=== PATIENT | male | born 2000 | race Hispanic/Latino ===

== ENCOUNTER 2018-04-28 20:36 | Emergency (ER) | payer MEDICAID, OTHER ==
[2018-04-28 20:53] VITALS: BP 141/78
--- NOTE | 2018-04-28 22:04 | Emergency Department Report ---
ED Fall HPI - General Chief Complaint: Fall Stated Complaint: HEAD PAIN Time Seen by Provider: 04/28/18 21:00 Source: patient, EMS Mode of arrival: Stretcher - History of Present Illness Initial Comments: Mr. Chairez is a very pleasant 17-year-old male with history of major depressive disorder, PTSD, ADHD and seizure who presents after a fall in his apartment. He stumbles and fell. He struck his head on the kitchen counter. He suspects loss of consciousness. He is able to get up on his own. He then ambulated to the staff office. He was transported by EMS. He has mild headache. Mild neck pain. Otherwise has been in good health. He arrived to our ED with cervical collar and immobilization on spinal board. Mr. Chairez grew up in [place]. [place] Denies tobacco abuse or alcohol use. Does smoke marijuana occasionally. MD Complaint: fall -: Sudden Fall From: standing When Fall Occurred: 1 hour [employer] Fall Witnessed: no Place Fall Occurred: home Loss of Consciousness: yes Prolonged Down Time?: no Symptoms Prior to Fall: none Location: head Severity: mild Associated Symptoms: headache, neck pain - Related Data Allergies Allergy/AdvReac Type Severity Reaction Status Date / Time tramadol Allergy Unknown Verified 04/28/18 20:41 ED Review of Systems ROS: Stated complaint: HEAD PAIN Other details as noted in HPI Comment: All other systems reviewed and negative Constitutional: denies: fever, malaise Respiratory: denies: cough ED Past Medical Hx - Past Medical History Previous Medical History?: Yes Additional medical history: ADHD - Surgical History Past Surgical History?: No - Social History Smoking Status: Never Smoker Substance Use Type: None ED Physical Exam - General Limitations: No Limitations General appearance: alert, in no apparent distress - Head Head exam: Present: normocephalic, other (superficial abrasion right forehead no hematoma) - Eye Eye exam: Present: normal appearance, PERRL. Absent: scleral icterus - ENT ENT exam: Present: mucous membranes moist - Neck Neck exam: Present: normal inspection, other (cervical collar in place). Absent: tenderness, meningismus - Respiratory Respiratory exam: Present: normal lung sounds bilaterally. Absent: respiratory distress, wheezes, rales, rhonchi - Cardiovascular Cardiovascular Exam: Present: regular rate, normal rhythm, normal heart sounds. Absent: systolic murmur, diastolic murmur, rubs, gallop - GI/Abdominal GI/Abdominal exam: Present: soft, normal bowel sounds. Absent: distended, tenderness, guarding, rebound - Rectal Rectal exam: Present: deferred - Extremities Exam Extremities exam: Present: normal inspection - Back Exam Back exam: Present: normal inspection - Neurological Exam Neurological exam: Present: alert, oriented X3, CN II-XII intact, normal gait. Absent: motor sensory deficit - Psychiatric Psychiatric exam: Present: normal affect, normal mood - Skin Skin exam: Present: warm, dry, intact, normal color. Absent: rash ED Course Vital Signs 04/28/18 20:50 Temperature 98.2 F Pulse Rate 97 H Respiratory 16 Rate Blood Pressure 141/78 Blood Pressure 141/78 [Left] O2 Sat by Pulse 100 Oximetry ED Medical Decision Making - Radiology Data Radiology results: report reviewed CT head, CT C-spine without acute process - Medical Decision Making Mr. Chairez presents with closed head injury after a ground-level fall. In an odd manner, at the end of my initial evaluation, Mr. Chairez stated that "I hope I don't have a seizure." When I asked further examination, he explained that he had seizures on previous occasion. However he had not had a seizure in 5 years. Shortly after he returned from CT scan, nurse informed me that he was having an active seizure. I came to the bedside. I observed Mr. Chairez drooling with his eyes open. He appeared to make eye contact. He had repetitive jerking of the right lower extremity. The seizure activity was brief. He awakened immediately and asked, "What happened?" I suspect pseudoseizure. Given IV keppra preemptively. CT head, CT C-spine without acute process. After 5 hours observation in the ED, no further seizure activity noted. Patient is awake alert and ambulatory. I explained to patient that antiepileptic medication not indicated at this time Critical care attestation.: If time is entered above; I have spent that time in minutes in the direct care of this critically ill patient, excluding procedure time. ED Disposition Clinical Impression: CHI (closed head injury), Cervical strain, Seizure Disposition: DC-01 TO HOME OR SELFCARE Is pt being admited?: No Does the pt Need Aspirin: No Condition: Stable Instructions: Non-epileptic Seizures (ED), Minor Head Injury (ED) Referrals: DEREJE ANDREWS MD [Primary Care Provider] - 3-5 Days
[2018-04-28] MEDS ORDERED: KEPPRA 1,000 MG/NS 0.75% 100ML 1,000 MG/100 ML BAG IV ONE (23:09)
--- NOTE | 2018-04-28 23:45 | Cat Scan Report ---
FINAL REPORT EXAM: CT HEAD/BRAIN WO CON HISTORY: fall CHI TECHNIQUE: CT was performed from the foramen magnum through the vertex in the axial plane without th e use of intravenous contrast. PRIORS: None. FINDINGS: The mendoza/white matter attenuation pattern is normal. There is no mass lesion or mass effect. There ar e no abnormal extra-axial fluid collections. There is no evidence of acute intracranial hemorrhage or infarct. The ventricles are of normal size and configuration. The skull and orbits are unremarkable . The visualized paranasal sinuses are clear. IMPRESSION: Normal CT of the head.
--- NOTE | 2018-04-28 23:54 | Cat Scan Report ---
FINAL REPORT EXAM: CT CERVICAL SPINE WO CON HISTORY: fall neck pain TECHNIQUE: Helical axial CT imaging of the cervical spine. Images are reconstructed in the sagittal and coronal planes. PRIORS: None. 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 The vertebral bodies have normal height and alignment. There is no evidence of fracture or subluxation. The paraspinous soft tissues are unremarkable. IMPRESSION: No evidence of acute fracture or subluxation.
== END 2018-04-29 02:38 | disposition home or self-care (01) ==
LOC: ED 20:36
DX: S16.1XXA Strain of muscle, fascia and tendon at neck level, initial encounter (principal); S09.90XA Unspecified injury of head, initial encounter; R56.9 Unspecified convulsions; F90.9 Attention-deficit hyperactivity disorder, unspecified type; F32.9 Major depressive disorder, single episode, unspecified; F43.10 Post-traumatic stress disorder, unspecified; Z88.6 Allergy status to analgesic agent; W19.XXXA Unspecified fall, initial encounter; Y93.89 Activity, other specified; Y92.89 Other specified places as the place of occurrence of the external cause; Y99.8 Other external cause status
CPT/HCPCS: 70450; 72125; 96365; 99284; J1953

== ENCOUNTER 2018-04-29 17:17 | Emergency (ER) | payer MEDICAID, OTHER ==
--- NOTE | 2018-04-29 19:15 | XRay Report ---
FINAL REPORT EXAM: XR ANKLE 2V RT HISTORY: ankle PAIN TECHNIQUE: Three views right ankle PRIORS: None. FINDINGS: No fracture is identified. No dislocation seen. Ankle mortise is intact no evidence of joint space w idening. No erosive or degenerative changes are identified. No evidence of joint effusion. 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
[2018-04-29] MEDS ORDERED: IBUPROFEN PO ONE (20:16)
--- NOTE | 2018-04-29 20:30 | Emergency Department Report ---
ED Lower Extremity HPI - General Chief Complaint: Extremity Injury, Lower Stated Complaint: RT ANKLE PAIN Time Seen by Provider: 04/29/18 19:10 Source: patient Mode of arrival: Ambulatory Limitations: No Limitations - History of Present Illness Initial Comments: This is a 17-year-old male nontoxic, well nourished in appearance, no acute signs of distress presents to the ED with c/o of right ankle pain 1 day. Patient stated that he fell and twisted his ankle. Patient denies any other trauma. Patient denies any numbness, tingling, fever, chills, nausea, vomiting, chest pain, shortness of breath, headache, stiff neck. Patient denies any joint swelling or joint redness. Patient denies decreased range of motion. Patient stated has decreased gait due to pain. Patient stated allergies to tramadol. MD Complaint: ankle injury Injury: Ankle: Right Type of Injury: inversion Place: street/outdoors Severity: mild Severity scale (0 -10): 8 Improves With: immobilization Worsens With: weight bearing, movement, palpation Associated Symptoms: swelling, able to partially bear weight, ambulatory. denies: snap/pop sensation, numbness, tingling, unable to bear weight - Related Data Previous Rx's Medication Instructions Recorded Last Taken Type Ibuprofen [Motrin] 600 mg PO Q8H PRN #20 tablet 04/29/18 Unknown Rx Allergies Allergy/AdvReac Type Severity Reaction Status Date / Time tramadol Allergy Unknown Verified 04/29/18 17:17 ED Review of Systems ROS: Stated complaint: RT ANKLE PAIN Other details as noted in HPI Constitutional: denies: chills, fever Eyes: denies: eye pain, eye discharge, vision change ENT: denies: ear pain, throat pain Respiratory: denies: cough, shortness of breath, wheezing Cardiovascular: denies: chest pain, palpitations Endocrine: no symptoms reported Gastrointestinal: denies: abdominal pain, nausea, diarrhea Genitourinary: denies: urgency, dysuria Musculoskeletal: denies: back pain, joint swelling, arthralgia Skin: denies: rash, lesions Neurological: denies: headache, weakness, paresthesias Psychiatric: denies: anxiety, depression Hematological/Lymphatic: denies: easy bleeding, easy bruising ED Past Medical Hx - Past Medical History Additional medical history: ADHD - Social History Smoking Status: Never Smoker Substance Use Type: Marijuana - Medications Home Medications: Home Medications Medication Instructions Recorded Confirmed Last Taken Type Ibuprofen [Motrin] 600 mg PO Q8H PRN #20 tablet 04/29/18 Unknown Rx ED Physical Exam - General Limitations: No Limitations General appearance: alert, in no apparent distress - Head Head exam: Present: atraumatic, normocephalic - Extremities Exam Extremities exam: Present: normal inspection, full ROM, tenderness, normal capil rebecca refill. Absent: joint swelling - Expanded Lower Extremity Exam Right Hip exam: Present: normal inspection, full ROM. Absent: tenderness Upper Leg exam: Present: normal inspection, full ROM. Absent: tenderness Knee exam: Present: normal inspection, full ROM. Absent: tenderness Lower Leg exam: Present: normal inspection, full ROM. Absent: tenderness Ankle exam: Present: normal inspection, full ROM, tenderness, swelling. Absent: abrasion, laceration, ecchymosis, deformity, crepidus, dislocation, erythema, anterior draw sign Foot/Toe exam: Present: normal inspection, full ROM. Absent: tenderness Neuro vascular tendon exam: Present: no vascular compromise Gait: Positive: observed and limited by pain - Back Exam Back exam: Present: normal inspection, full ROM - Neurological Exam Neurological exam: Present: alert, oriented X3 - Psychiatric Psychiatric exam: Present: normal affect, normal mood - Skin Skin exam: Present: warm, dry, intact, normal color. Absent: rash ED Course Vital Signs 04/29/18 17:21 Temperature 98.1 F Pulse Rate 89 Respiratory 16 Rate Blood Pressure 108/67 O2 Sat by Pulse 95 Oximetry - Reevaluation(s) Reevaluation #1: 04/29/18 20:36 Patient is speaking in full sentences with no signs of distress noted. ED Lower Extremity MDM - Medical Decision Making This is a 17-year-old male that presents with right ankle sprain. Patient is stable and was examined by me. I referred patient to an orthopedic doctor for further evaluation for possible MRI. X-ray has been obtained and dictated by the radiologist. Patient is notified of the x-ray report with noted by the patient. Patient does have normal gait with no tenderness and no joint swelling. No ecchymosis. no joint redness or swelling. Not warm to touch. No signs of cellulites present. Patient received ankle stirrup and crutches and was educated by RN how to use crutches. Patient was instructed to RICE therapy. Patient received Motrin for pain. Patient is discharged with Motrin. At time of discharge, the patient does not seem toxic or ill in appearance. No acute signs of distress noted. Patient agrees to discharge treatment plan of care. No further questions noted by the patient. Critical care attestation.: If time is entered above; I have spent that time in minutes in the direct care of this critically ill patient, excluding procedure time. ED Disposition Clinical Impression: Right ankle sprain Qualifiers: Encounter type: initial encounter Involved ligament of ankle: unspecified ligament Qualified Code(s): S93.401A - Sprain of unspecified ligament of right ankle, initial encounter Disposition: TO HOME OR SELFCARE Is pt being admited?: No Does the pt Need Aspirin: No Condition: Stable Instructions: Ankle Sprain (ED), Ankle Stirrup Splint (ED), Crutch Instructions (ED), RICE Therapy (ED) Additional Instructions: Follow-up with a orthopedic care doctor in 3-5 days or if symptoms worsen and continue return to emergency room as soon as possible. Prescriptions: Ibuprofen [Motrin] 600 mg PO Q8H PRN #20 tablet PRN Reason: Pain Referrals: ANNIE RODRIGUEZ DO [Primary Care Provider] - 3-5 Days PRIMARY CAREMD [Referring] - 3-5 Days JAILENE CHOUDHARY MD [Staff Physician] - 3-5 Days [facility] [Outside] - 3-5 Days Forms: Work/School Release Form(ED)
[2018-04-29 20:47] VITALS: BP 116/65
== END 2018-04-29 21:29 | disposition home or self-care (01) ==
LOC: ED 17:17
DX: S93.401A Sprain of unspecified ligament of right ankle, initial encounter (principal); F12.10 Cannabis abuse, uncomplicated; W18.30XA Fall on same level, unspecified, initial encounter; Y93.89 Activity, other specified; Y92.89 Other specified places as the place of occurrence of the external cause; Y99.8 Other external cause status